=== PATIENT | female | born 1960 | race Caucasian/White ===

== ENCOUNTER 2021-11-17 19:13 | Emergency (ER) | payer OTHER ==
[~2021-11-17 19:13] MED LIST: PERCOCET 5/325 T1 EA PO; ZOFRAN ODT 4 MG4 MG GT
[2021-11-17] MEDS ORDERED: PERCOCET 5/325 T1 EA PO (23:44)
[2021-11-17] MEDS ORDERED: ZOFRAN ODT 4 MG4 MG GT (23:44)
== END 2021-11-18 00:14 | disposition home or self-care (01) ==
LOC: EDBD 19:13 → ER1 19:13
DX: S80.01XA Contusion of right knee, initial encounter (principal); S09.90XA Unspecified injury of head, initial encounter; M81.0 Age-related osteoporosis without current pathological fracture; I10 Essential (primary) hypertension; Z86.718 Personal history of other venous thrombosis and embolism; Z88.0 Allergy status to penicillin; Z98.890 Other specified postprocedural states; W01.10XA Fall on same level from slipping, tripping and stumbling with subsequent striking against unspecified object, initial encounter
CPT/HCPCS: 70450; 70486; 72125; 73502; 73552; 73564; 99284